=== PATIENT | male | born 1945 | race Caucasian/White ===

== ENCOUNTER 2016-08-30 08:03 | Inpatient (IN) | payer OTHER ==
[~2016-08-30] VITALS: Ht 180.3 cm; Wt 134.0 kg
[~2016-08-30 08:03] MED LIST: ADULT FOLDING1 EACH MC; BAYER BACK & B1 EACH PO; CALCIUM PO; CINNAMON500 MG PO; CYCLOBENZAPRINE10 MG PO; ENDOCET 5-3251 EACH PO; FLEXERIL10 MG PO; IRON325 M1 PO; LISINOPRIL-HCT1 EACH PO; MOBIC7.5 MG PO; NORCO 5/3251 TABLET PO; PERCOCET 5/31 TABLET PO; TYLENOL EXTRA500 MG PO; VITAMIN D31000 UNIT PO; ZESTRIL10 MG PO
[2016-08-30 09:10] VITALS: BP 175/91
[2016-08-30] MEDS ORDERED: IRON325 M1 PO (11:22)
[2016-08-30 13:28] LABS: HEMATOCRIT 38.7 % (38.0-50.0); MCH 26.8 PG (29.0-34.0); MCHC 31.3 G/DL (30.0-36.0); MCV 85.6 FL (86-99); MEAN PLAT.VOLUME 11.4 uM^3 (9.0-12.4); RBC DIS.WIDTH-CV 15.6 % (11.8-14.6); RBC DIS.WIDTH-SD 48.8 % (39-53); RED BLOOD COUNT 4.52 M/uL (4.00-5.50)
[2016-08-30 13:36] LABS: PLATELET COUNT 175 K/uL (156-360); WHITE BLOOD COUNT 8.7 K/uL (4.1-10.2)
[2016-08-30 15:05] VITALS: BP 189/77
[2016-08-31] VITALS (7 sets, daily range): BP systolic 114–155; BP diastolic 54–80
[2016-08-31 04:43] LABS: CHLORIDE 106 mEq/L (99-109); POTASSIUM 4.2 mEq/L (3.7-5.4); SODIUM 139 mEq/L (136-147)
[2016-08-31 04:44] LABS: GLUCOSE 134 mg/dL (70-99)
[2016-08-31 04:46] LABS: ANION GAP 11 MEQ/L (2-14)
[2016-08-31 04:48] LABS: GFR ESTIMATE (CALCULATED) > 59 mL/min/
[2016-08-31 04:49] LABS: UREA NITROGEN (BUN) 22 mg/dL (9-23)
[2016-08-31 13:11] LABS: HEMATOCRIT 35.5 % (38.0-50.0); MCV 86.8 FL (86-99)
[2016-09-01] VITALS: BP 136/64
[2016-09-01 04:00] VITALS: BP 138/72
[2016-09-01 08:00] VITALS: BP 126/60
[2016-09-01] MEDS ORDERED: LOVENOX40 MG/0.4 SC (08:28)
[2016-09-01] MEDS ORDERED: ENDOCET 5-3251 EACH PO (08:28)
[2016-09-01 08:51] LABS: HEMATOCRIT 33.9 % (38.0-50.0); MCV 86.7 FL (86-99)
[2016-09-01 12:00] VITALS: BP 121/67
== END 2016-09-01 15:45 | disposition home health service (06) | DRG 470 ==
LOC: 2SOUTH 08:03 → 3WEST 14:55
PROVIDERS: Orthopaedic Surgery; Physician Assistant
PROC: 0SR901Z Replacement of Right Hip Joint with Metal Synthetic Substitute, Open Approach (ICD-10-PCS; principal; 2016-08-30)
DX: M16.11 Unilateral primary osteoarthritis, right hip (principal); I10 Essential (primary) hypertension; Z98.1 Arthrodesis status; Z95.5 Presence of coronary angioplasty implant and graft; Z68.39 Body mass index [BMI] 39.0-39.9, adult
CPT/HCPCS: 73501; 73522; 80048; 82948; 85014; 85018; 85027; 97530 GP; J0330; J1170; J1650; J2250; J2405; J3010; J3370; J7050

== ENCOUNTER 2016-09-13 20:50 | Emergency (ER) | payer OTHER ==
[~2016-09-13] VITALS: Ht 180.3 cm; Wt 129.5 kg
[~2016-09-13 20:50] MED LIST changes: +LOVENOX40 MG/0.4 SC
[2016-09-14 02:15] VITALS: BP 138/68
== END 2016-09-14 02:15 | disposition home or self-care (01) ==
LOC: EME 20:50
DX: M96.840 Postprocedural hematoma of a musculoskeletal structure following a musculoskeletal system procedure (principal); Z96.641 Presence of right artificial hip joint; Z88.0 Allergy status to penicillin; Z91.040 Latex allergy status; Z79.01 Long term (current) use of anticoagulants
CPT/HCPCS: 76882; 99281; 99284